=== PATIENT | female | born 1960 | race African-American/Black ===

== ENCOUNTER 2021-06-22 06:24 | Emergency (ER) | payer MEDICAID ==
[~2021-06-22] VITALS: Ht 165.1 cm; Wt 113.6 kg
[2021-06-22] MEDS ORDERED: AMLO5TAB66 PO (06:50)
[2021-06-22] MEDS ORDERED: LOSA50TA37 PO (06:50)
[2021-06-22] MEDS ORDERED: BUPR200T3 PO (06:50)
[2021-06-22 07:39] VITALS: BP 154/81
== END 2021-06-22 08:18 | disposition home or self-care (01) ==
LOC: EMS 06:27
DX: R00.2 Palpitations (principal); I10 Essential (primary) hypertension; K57.92 Diverticulitis of intestine, part unspecified, without perforation or abscess without bleeding; F12.90 Cannabis use, unspecified, uncomplicated; Z90.710 Acquired absence of both cervix and uterus; Z98.890 Other specified postprocedural states
CPT/HCPCS: 93005; 99283